=== PATIENT | male | born 1965 | race Caucasian/White ===

== ENCOUNTER 2016-07-13 23:45 | Emergency (ER) | payer SELFPAY ==
[~2016-07-13] VITALS: Ht 172.7 cm; Wt 81.0 kg
[~2016-07-13 23:45] MED LIST: AMIO200T2 PO; ASPI-664 PO; METO-429 PO; PANT40TA3 PO
[2016-07-13] MEDS ORDERED: KETOROLAC 15 MG INJ IV STA (23:52)
[2016-07-13] MEDS ORDERED: SOD CHLORIDE 0.9% 1,000 ML IV STA (23:52)
[2016-07-13 23:55] VITALS: Ht 172.7 cm; Wt 81.0 kg
[2016-07-14] MEDS ORDERED: LORAZEPAM 2 MG INJ IV ONE (00:30)
--- NOTE | 2016-07-14 00:36 | RADRPT ---
PROCEDURE: CHEST - 1 VIEW CLINICAL INDICATION: 51-year-old male with chest/abdominal pain. TECHNIQUE: A single frontal AP semi-erect view of the chest was performed. The images were review ed on a PACS workstation. COMPARISON: Chest x-ray June 19, 2014; CTA chest June 19, 2014. FINDINGS: The cardiomediastinal silhouette is within normal limits. There is mild elevation right hemidiaphra gm. There is linear subsegmental atelectasis and/or scarring within the right mid lung zone. There is mild right basilar subsegmental atelectasis. There is no evidence for an infiltrate. There is no evidence for congestive heart failure. There is no evidence for pneumothorax. The osseous structu res are intact. IMPRESSION: 1. Elevated right hemidiaphragm. 2. Linear subsegmental atelectasis and/or scarring within the right mid lung zone similar to the arleen horvath's prior study. 3. Mild right basilar subsegmental atelectasis. .Van Branham MD, Date Time Electronically viewed and signed by .Van Branham MD, on 07/14/2016 00:36 .M/
[2016-07-14 01:09] LABS: ADD SCAN DIFF NO
[2016-07-14 01:10] LABS: BASOPHILS % 0.5 % (0.0-2.0); EOSINOPHILS # 0.2 10^3/ul (0.0-0.5); HEMATOCRIT 43.6 % (42.0-52.0); LYMPHOCYTES # 2.1 10^3/ul (0.8-2.9); LYMPHOCYTES % 27.2 % (15.0-51.0); MEAN CORPUSCULAR HGB CONC 32.1 g/dl (32.0-37.0); MEAN CORPUSCULAR VOLUME 90.3 fl (82.0-101.0); MEAN PLATELET VOLUME 10.6 fl (7.4-10.4); MONOCYTE # 0.8 10^3/ul (0.3-0.9); MONOCYTES % 10.8 % (0.0-11.0); NEUTROPHIL # 4.5 10^3/ul (1.6-7.5); NEUTROPHILS % 59.1 % (39.0-77.0); PLATELET COUNT 254 10^3/UL (140-415); RED BLOOD COUNT 4.83 10^6/ul (4.70-6.10); RED CELL DISTRIBUTION WIDTH 12.9 % (11.5-14.5); WHITE BLOOD COUNT 7.6 10^3/ul (4.8-10.8)
[2016-07-14] MEDS ORDERED: IBUP-1542 PO (01:18)
--- NOTE | 2016-07-14 01:18 | ERD ---
ER Documentation Chief Complaint Date/Time DATE: 07/14/16 TIME: 01:14 Chief Complaint mid pressure-like CP x 45 min, non radiating, ntg x 5, asa 243mg HPI 51-year-old man brought in by EMS for complaints of chest pain. He was given nitroglycerin and aspirin en route as well as morphine with continued symptoms. Patient states the pain is localized to the left anterior upper axilla and is nonradiating and nonexertional. Patient does have a history of coronary artery disease, PCI with stents placed, and previous KS. Patient states he has recently been upset because his 16-year-old sons health is deteriorating secondary to white matter disease which is where an untreatable. He denies shortness of breath, no cough, no fevers or chills, no weight loss, no vomiting or diarrhea. Patient was transported here by EMS without further complications. ROS All systems reviewed and are negative except as per history of present illness. Medications Home Meds Active Scripts Ibuprofen* (Ibuprofen*) 600 Mg Tablet, 600 MG PO Q8 for PAIN AND/OR INFLAMMATION , #30 TAB Prov:JANE KLINE MD 07/14/16 Reported Medications Aspirin* (Aspirin* (EC)) 81 Mg Tablet.dr, 81 MG PO DAILY, TAB 06/19/14 Metoprolol Tartrate* (Lopressor*) 50 Mg Tab, 50 MG PO BID, TAB 06/19/14 Discontinued Reported Medications Pantoprazole* (Protonix*) 40 Mg Tablet.dr, 40 MG PO DAILY, TAB 06/19/14 Amiodarone Hcl* (Amiodarone Hcl*) 200 Mg Tablet, 200 MG PO DAILY, TAB 06/19/14 Allergies Allergies: Coded Allergies: No Known Allergy (Unverified , 07/13/16) PMhx/Soc History of coronary artery disease, myocardial infarction, status post PCI with stents x2. He had restenosis of the initial stent, placed 12 years ago, had to be restented a few years after that. Hypertension and gastritis. Hx Cardiac Disorders: Yes (stents and KS, HTN) Hx Alcohol Use: Yes (occasionally) Hx Substance Use: No Hx Tobacco Use: Yes (cigar occasionally) Smoking Status: Light tobacco smoker FmHx Family History: diabetes Physical Exam Vitals Vital Signs Date Time Temp Pulse Resp B/P Pulse Ox O2 Delivery O2 Flow Rate FiO2 07/14/16 00:02 59 12 107/84 98 Nasal Cannula 3.0 07/13/16 23:55 98.4 81 18 115/79 97 Physical Exam GENERAL: Well-developed, well-nourished, well-hydrated, in no apparent distress , looks nontoxic in appearance HEENT: Moist mucous membranes, pink conjunctiva, no cervical spine tenderness or step-off deformities, no goiter, no jaundice or icterus, extraocular movements intact without pain. No submandibular induration, and no pharyngeal erythema NEURO: Alert and oriented 3, cranial nerves II through XII intact bilaterally, pupils equal round reactive to light, no focal deficits or facial asymmetry, sensation intact distally Strength 5/5 in upper and lower extremities bilaterally CARDIAC: Regular rate and rhythm, no murmurs rubs or gallops LUNGS: Clear bilaterally no wheezing crackles or stridor ABDOMEN: Soft nontender, no guarding, no rigidity, no rebound, no psoas sign no obturator sign. Normoactive bowel sounds SKIN: Warm and dry to touch, no abrasions, contusions, or hematomas, no lacerations, no ecchymosis, no target lesions, and without ulcers EXTREMITIES: No clubbing cyanosis or edema, calves are bilaterally symmetrical, no Homans sign, no popliteal cord sign. Distal pulses equal and bilateral PSYCH: Normal affect without agitation or irritability Result Diagram: 07/14/16 0020 07/14/16 0020 Results 24 hrs Laboratory Tests Test 07/14/16 00:20 White Blood Count 7.610^3/ul Red Blood Count 4.8310^6/ul Hemoglobin 14.0g/dl Hematocrit 43.6% Mean Corpuscular Volume 90.3fl Mean Corpuscular Hemoglobin 29.0pg Mean Corpuscular Hemoglobin Concent 32.1g/dl Red Cell Distribution Width 12.9% Platelet Count 52734^3/UL Mean Platelet Volume 10.6fl Neutrophils % 59.1% Lymphocytes % 27.2% Monocytes % 10.8% Eosinophils % 2.0% Basophils % 0.5% Nucleated Red Blood Cells % 0.0/100WBC Neutrophils # 4.510^3/ul Lymphocytes # 2.110^3/ul Monocytes # 0.810^3/ul Eosinophils # 0.210^3/ul Basophils # 0.010^3/ul Nucleated Red Blood Cells # 0.010^3/ul Sodium Level 139mmol/L Potassium Level 3.7mmol/L Chloride Level 109mmol/L Carbon Dioxide Level 25mmol/L Anion Gap 9 Blood Urea Nitrogen 17mg/dl Creatinine 1.04mg/dl Glucose Level 97mg/dl Calcium Level 8.5mg/dl Total Bilirubin 0.2mg/dl Direct Bilirubin 0.00mg/dl Indirect Bilirubin 0.2mg/dl Aspartate Amino Transf (AST/SGOT) 24IU/L Alanine Aminotransferase (ALT/SGPT) 32IU/L Alkaline Phosphatase 90IU/L Troponin I < 0.012ng/ml Total Protein 6.5g/dl Albumin 3.5g/dl Globulin 3.00g/dl Albumin/Globulin Ratio 1.16 Lipase 131U/L Current Medications Medications (Trade) Dose Ordered Sig/Bravo Route PRN Reason Start Time Stop Time Status Last Admin Dose Admin Sodium Chloride (NS) 1,000 ml @ 1,000 mls/hr Q1H STAT IV 07/13/16 23:52 07/14/16 00:51 DC 07/13/16 23:59 Ketorolac Tromethamine (Toradol) 15 mg ONCE STAT IV 07/13/16 23:52 07/13/16 23:54 DC 07/13/16 23:59 Lorazepam (Ativan) 0.5 mg ONCE ONCE IV 07/14/16 00:30 07/14/16 00:39 DC 07/14/16 00:41 Procedures/MDM IV line was established patient was placed on school lunch monitor rhythm strip revealed a sinus rhythm at about 80 bpm with upright P and T waves. Patient was afebrile. One view chest x-ray performed, read by me revealed atelectatic changes, no acute infiltrates, no pneumothorax, no air under the diaphragm. EKG #1 was performed, read by me revealed a normal sinus rhythm at 77 bpm, normal axis, narrow QRS complex, no concerning ST elevations or depressions noted. I administered 1 L normal saline intravenously, lorazepam 0.5 mg IV 1, Toradol 50 mg IV 1 with good response. EKG #2 performed about an hour later revealed a sinus bradycardia 57 bpm, normal axis, narrow QRS complex, no concerning ST elevations or depressions. CBC and electrolytes were normal, liver function tests were normal, troponin was negative. I reviewed his previous medical records and imaging studies. 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 Differential diagnoses considered, included but not limited to acute coronary syndrome, pulmonary embolism, aortic dissection, abdominal aortic aneurysm, sepsis, stroke, meningitis, encephalitis, pneumonia, appendicitis, cholecystitis , bowel obstruction, pyelonephritis, nephrolithiasis, cystitis, as well as metabolic, hematologic, and electrolyte abnormalities. As well as abscess, cellulitis, fractures, and dislocations. Patient feels much better at this time, and vital signs are normal, symptoms have improved. I did give strict instructions to return to the ED if symptoms continue or worsen, patient will otherwise follow-up with primary care physician. Patient understood instructions and agreed to plan. Departure Diagnosis: Primary Impression: Chest pain Chest pain type: unspecified Qualified Code: R07.9 - Chest pain, unspecified type Condition: Good JANE KLINE MD Jul 14, 2016 01:18
[2016-07-14 01:22] LABS: ALBUMIN 3.5 g/dl (3.3-4.9); CHLORIDE 109 mmol/L (97-110)
[2016-07-14 01:23] LABS: POTASSIUM 3.7 mmol/L (3.5-5.1); SODIUM 139 mmol/L (135-144)
[2016-07-14 01:25] LABS: ALANINE AMINOTRANSFERASE 32 IU/L (13-69); ALBUMIN/GLOBULIN RATIO 1.16; ALKALINE PHOSPHATASE 90 IU/L (42-121); ANION GAP 9 (8-16); ASPARTATE AMINO TRANSFERASE 24 IU/L (15-46); BILIRUBIN,INDIRECT 0.2 mg/dl (0-1.1); BILIRUBIN,TOTAL 0.2 mg/dl (0.2-1.3); BLOOD UREA NITROGEN 17 mg/dl (7-20); CARBON DIOXIDE 25 mmol/L (21-31); CREATININE 1.04 mg/dl (0.61-1.24); GLUCOSE 97 mg/dl (70-220); TOTAL PROTEIN 6.5 g/dl (6.1-8.1)
[2016-07-14 01:26] LABS: CALCIUM 8.5 mg/dl (8.4-10.2)
[2016-07-14 02:05] LABS: TROPONIN-I < 0.012 ng/ml (0.00-0.12)
[2016-07-14 02:10] VITALS: BP 118/78; PULSE 73; RESP 18
== END 2016-07-14 02:10 | disposition home or self-care (01) ==
LOC: E/R 23:45
DX: R07.89 Other chest pain (principal); F17.210 Nicotine dependence, cigarettes, uncomplicated; I25.10 Atherosclerotic heart disease of native coronary artery without angina pectoris; I10 Essential (primary) hypertension; Z98.61 Coronary angioplasty status; Z79.82 Long term (current) use of aspirin
CPT/HCPCS: 71010; 80053; 83690; 84484; 85025; 93005; J1885; J2060; J7030; 36415; 96374; 96375

== ENCOUNTER 2018-09-04 21:03 | Observation (INO) | payer MEDICAID, OTHER ==
[~2018-09-04] VITALS: Ht 180.3 cm; Wt 88.6 kg
[~2018-09-04 21:03] MED LIST changes: -AMIO200T2 PO; +ASPI-1046 PO; -ASPI-664 PO; +IBUP-1542 PO; -PANT40TA3 PO
[2018-09-04 21:07] VITALS: Ht 180.3 cm; Wt 88.6 kg
[2018-09-04] MEDS ORDERED: NITROGLYCERIN 2% 1 GM OINT PKT TD STA (21:09)
[2018-09-04] MEDS ORDERED: ONDANSETRON 4 MG INJ IV STA (21:15)
[2018-09-04] MEDS ORDERED: morphine 4 MG/ML VIAL IV STA (21:15)
[2018-09-04] MEDS ORDERED: NITROGLYCERIN (SL) 0.4 MG TAB SL PRN (21:30)
[2018-09-04] MEDS ORDERED: HYDROmorphONE 2 MG/ML SYG IV STA (21:45)
[2018-09-04] MEDS ORDERED: METOPROLOL 50 MG TAB PO SCH (23:00)
[2018-09-04] MEDS ORDERED: ZOLPIDEM 5 MG TAB PO PRN (23:00)
[2018-09-04] MEDS ORDERED: ACETAMINOPHEN 325 MG TAB PO PRN (23:00)
[2018-09-04] MEDS ORDERED: ONDANSETRON 4 MG INJ IV PRN (23:00)
--- NOTE | 2018-09-04 23:26 | ERD ---
ER Documentation Chief Complaint Chief Complaint [id number],from home,chest pressure pain radiating to L arm,hx [place] X2 w/ stents HPI Patient is a 53-year-old male with hypertension and coronary disease who presents with chest pain. He was brought in by ambulance. His symptoms started a couple of hours ago. He feels pain across his chest which comes and goes. He took nitroglycerin at home. He was given aspirin and 2 nitroglycerin by paramedics. He is still having pain however. He said that his primary doctor is Dr. Fontanez. 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 ROS All systems reviewed and are negative except as per history of present illness. Medications Home Meds Active Scripts Ibuprofen* (Ibuprofen*) 600 Mg Tablet, 600 MG PO Q8 for PAIN AND/OR INFLAMMATION, #30 TAB Prov:JANE KLINE MD 07/14/16 Reported Medications Aspirin* (Aspirin* (EC)) 81 Mg Tablet.dr, 81 MG PO DAILY, TAB 06/19/14 Metoprolol Tartrate* (Lopressor*) 50 Mg Tab, 50 MG PO BID, TAB 06/19/14 Allergies Allergies: Coded Allergies: No Known Allergy (Unverified , 07/13/16) PMhx/Soc Hx Cardiac Disorders: Yes (stents X3 and [place], HTN) Hx Psychiatric Problems: No Hx Miscellaneous Medical Probl: No Hx Alcohol Use: Yes (occasionally) Hx Substance Use: No Hx Tobacco Use: Yes (cigar occasionally) Smoking Status: Current some day smoker FmHx Family History: coronary disease Physical Exam Vitals Vital Signs Date Temp Pulse Resp B/P (MAP) Pulse Ox O2 O2 Flow FiO2 Time Delivery Rate 09/04/18 71 20 116/77 95 Room Air 23:10 (90) 09/04/18 72 18 108/77 97 Room Air 21:46 (87) 09/04/18 98.0 67 19 129/89 98 21:07 (102) Physical Exam Constitutional: Moderate distress Head: Atraumatic Eyes: Normal Conjunctiva ENT: Normal External Ears, Nose and Mouth. Neck: Full range of motion. No meningismus. Resp: Clear to auscultation bilaterally Cardio: Regular rate and rhythm, no murmurs Abd: Soft, non tender, non distended. Normal bowel sounds Skin: No petechiae or rashes Back: No midline or flank tenderness Ext: No cyanosis, or edema Neur: Awake and alert Psych: Normal Mood and Affect Result Diagram: 09/04/18211309/04/182113 Results 24 hrs Laboratory Tests Test 09/04/18 21:14 White Blood Count 6.9 10^3/ul Red Blood Count 4.64 10^6/ul Hemoglobin 13.7 g/dl Hematocrit 41.6 % Mean Corpuscular Volume 89.7 fl Mean Corpuscular Hemoglobin 29.5 pg Mean Corpuscular Hemoglobin Concent 32.9 g/dl Red Cell Distribution Width 12.5 % Platelet Count 262 10^3/UL Mean Platelet Volume 9.9 fl Immature Granulocytes % 0.100 % Neutrophils % 63.8 % Lymphocytes % 24.4 % Monocytes % 9.6 % Eosinophils % 1.5 % Basophils % 0.6 % Nucleated Red Blood Cells % 0.0 /100WBC Immature Granulocytes # 0.010 10^3/ul Neutrophils # 4.4 10^3/ul Lymphocytes # 1.7 10^3/ul Monocytes # 0.7 10^3/ul Eosinophils # 0.1 10^3/ul Basophils # 0.0 10^3/ul Nucleated Red Blood Cells # 0.0 10^3/ul Sodium Level 143 mmol/L Potassium Level 3.5 mmol/L Chloride Level 108 mmol/L Carbon Dioxide Level 26 mmol/L Anion Gap 9 Blood Urea Nitrogen 11 mg/dl Creatinine 0.89 mg/dl Est Glomerular Filtrat Rate mL/min > 60 mL/min Glucose Level 99 mg/dl Calcium Level 8.9 mg/dl Troponin I < 0.012 ng/ml Current Medications Medications Dose Sig/Bravo Start Time Status Last (Trade) Ordered Route PRN Stop Time Admin Dose Reason Admin 1 inch ONCE STAT 09/04/18 DC 09/04/18 Nitroglycerin TD 21:09 21:15 09/04/18 21:10 (Nitroglyceri n 2% Oint) 1 tab Q5M UP TO 3 09/04/18 09/04/18 Nitroglycerin DOSES PRN 21:30 21:14 SL .CHEST (Nitroglyceri PAIN n (Sl Tab) 0.4 Mg) Morphine 4 mg ONCE STAT 09/04/18 DC 09/04/18 Sulfate IV 21:15 21:23 (morphine) 09/04/18 21:16 Ondansetron 4 mg ONCE STAT 09/04/18 DC 09/04/18 HCl (Zofran IV 21:15 21:20 Inj) 09/04/18 21:16 1 mg ONCE STAT 09/04/18 DC 09/04/18 Hydromorphone IV 21:45 22:01 HCl 09/04/18 21:46 (Dilaudid) Ondansetron 4 mg ER BRIDGE 09/04/18 HCl (Zofran PRN IV 23:00 Inj) NAUSEA/VOMITI 09/05/18 22:59 NG 650 mg ER BRIDGE 09/04/18 Acetaminophen PRN PO 23:00 (Tylenol .MILD PAIN 09/05/18 22:59 Tab) 1-3 OR TEMP Zolpidem 5 mg HS 09/04/18 Tartrate REPEAT X 1 23:00 (Ambien) PRN PO INSOMNIA Morphine 2 mg Q3H PRN 09/04/18 Sulfate IV moderate 23:00 (morphine) pain Aspirin 81 mg DAILY PO 09/05/18 (Halfprin) 09:00 Metoprolol 50 mg BID PO 09/04/18 Tartrate 23:00 (Lopressor) Procedures/MDM EKG #1 read by me: Rate/Rhythm: Regular rate and rhythm at a normal rate Intervals: Normal Impression: No evidence of ischemia or arrhythmia EKG #2 read by me: Rate/Rhythm: Regular rate and rhythm at a normal rate Intervals: Normal Impression: No evidence of ischemia or arrhythmia Chest x-ray read by radiology. Patient is a 53-year-old male with multiple cardiac risk factors who presents with chest pain. I am concerned for possible acute coronary syndrome. I doubt pneumonia, pneumothorax, pulmonary embolism, or aortic dissection. The patient will be admitted to the care of Dr. Lindsey as he has regal insurance to a telemetry observation bed. He received aspirin, nitroglycerin, and morphine. Departure Diagnosis: Primary Impression: Chest pain Chest pain type: unspecified Qualified Codes: R07.9 - Chest pain, unspecified Condition: GÓMEZ Rivera MD September 04, 2018 23:26
[2018-09-05] MEDS: morphine 2 MG INJ IV PRN ×4 (02:39→08:42)
[2018-09-05] MEDS ORDERED: ASPIRIN (EC) 81 MG TAB PO SCH (09:00)
[2018-09-05] MEDS ORDERED: METOPROLOL 25 MG TAB PO SCH (10:00)
--- NOTE | 2018-09-05 10:57 | PDOCDIS ---
Discharge Instructions CONDITION [id number] Patient Condition: [id number] Good HOME CARE INSTRUCTIONS: [id number] Diet Instructions: [id number] FOLLOW UP/APPOINTMENTS Follow-up Plan pcp 1 week CROW PANDYA MD September 05, 2018 10:57
[2018-09-05] MEDS ORDERED: CLOP75TA27 PO (11:08)
[2018-09-05 11:10] VITALS: BP 134/65; PULSE 66; RESP 17
--- NOTE | 2018-09-05 13:20 | HP ---
DATE OF ADMISSION: 09/04/2018 CHIEF COMPLAINT: Chest pain. HISTORY OF PRESENT ILLNESS: A 53-year-old male with history of coronary artery disease and hypertens ion, was brought into the emergency room via paramedics with complaints of chest pain across the uppe r chest. The patient was given aspirin and nitroglycerin by the paramedics. The patient reports juan carlos t he recently learned about his 19-year-old son. His son has a limited life span as secondary to a ge netic metabolic disorder. His son also had multiple episodes of generalized seizure. The patient wa s quite anxious and under a lot of stress when he developed the chest discomfort. He denies shortnes s of breath. No nausea, vomiting or diaphoresis. Serial troponins have been normal. PAST MEDICAL HISTORY: 1. Coronary artery disease. 2. Hypertension. MEDICATIONS PRIOR TO ADMISSION: 1. Plavix 75 mg p.o. daily. 2. Lopressor 25 mg p.o. b.i.d. 3. Aspirin 81 mg daily. SOCIAL HISTORY: The patient lives at home. He denies tobacco or alcohol use. PHYSICAL EXAMINATION: GENERAL: Well-developed, well-nourished male who is in no apparent distress. VITAL SIGNS: Stable. He is afebrile. HEENT: Extraocular muscles intact. Pupils equal and reactive to light bilaterally. Sclerae are ani cteric. Oropharynx is clear and moist. NECK: Supple, no JVD, no carotid bruits. CHEST: Upper chest is tender to palpation. LUNGS: Clear to auscultation bilaterally. CARDIAC: Regular rate and rhythm. No murmurs or gallops. ABDOMEN: Soft, nontender, nondistended, normoactive bowel sounds. EXTREMITIES: No clubbing, cyanosis, or edema. NEUROLOGIC: Grossly nonfocal. LABORATORY DATA: Basic metabolic panel is within normal limits. CBC is also normal. A 12-lead EKG shows normal sinus rhythm with no evidence of ST-T wave changes x2. ASSESSMENT: 1. A 53-year-old male who presents with acute chest pain brought on by anxiety. Acute myocardial in farction was ruled out. I recommended the Lexiscan stress test. However, the patient refused the te st since he had a normal nuclear stress test in May of 2018. 2. Hypertension, well controlled. PLAN: 1. Place in tele observation, resume home medications. 2. Discharge planning. Dictated By: CROW DEMPSEY/SHU Conf#: [id number] DID#: [id number]
--- NOTE | 2018-09-06 02:51 | DS ---
DATE OF ADMISSION: 09/04/2018 DATE OF DISCHARGE: 09/05/2018 DISCHARGE DIAGNOSES: 1. Atypical chest pain. 2. Coronary artery disease, stable. 3. Hypertension. 4. Anxiety disorder. HOSPITAL COURSE: A 53-year-old male with known history of coronary artery disease and hypertension, was brought in by paramedics after he experienced upper chest discomfort at home. This was brought o n by anxiety and severe stress. The patient has a 19-year-old son who was diagnosed with genetic met abolic disorder and a limited life span. The son has been having generalized seizures. The patient was severely affected by his son's condition. Following admission to the hospital, acute [place] was ruled out. EKGs were completely normal. I recomme nded a Lexiscan stress test. However, patient refused the stress test since he had a nuclear stress test in May 2018, which was normal. The patient is in a stable condition for discharge. I aske d him to continue his home medications and follow up with his PCP. Dictated By: CROW DEMPSEY/SHU Conf#: [id number] DID#: [id number]
== END 2018-09-05 10:55 | disposition home or self-care (01) ==
LOC: E/R 21:03 → TEL 22:48 → E/R 09-05 11:29 → CANBEDREQ 09-05 13:28
PROVIDERS: ADMIT Internal Medicine; ATTEND Internal Medicine
DX: R07.89 Other chest pain (principal); I25.10 Atherosclerotic heart disease of native coronary artery without angina pectoris; Z95.5 Presence of coronary angioplasty implant and graft; I10 Essential (primary) hypertension; F41.9 Anxiety disorder, unspecified; I25.2 Old myocardial infarction; F17.290 Nicotine dependence, other tobacco product, uncomplicated; Z79.82 Long term (current) use of aspirin; Z79.02 Long term (current) use of antithrombotics/antiplatelets
CPT/HCPCS: 36415; 71045; 80048; 82550; 82553; 84484; 85025; 93005; 96374; 96375; J1170; J2270; J2405; Z7500; Z7502; Z7610; G0378

== ENCOUNTER 2019-02-06 05:54 | Inpatient (IN) | payer OTHER ==
[~2019-02-06] VITALS: Ht 180.3 cm; Wt 88.1 kg
[~2019-02-06 05:54] MED LIST changes: +ALPR0.254 PO; +ATOR20TA65 PO; +CLOP75TA27 PO; +CLOP75TA28 PO; -IBUP-1542 PO; +LISI2.5T59 PO; +PANT40TA4 PO
[2019-02-06] MEDS ORDERED: morphine 4 MG/ML VIAL IV STA ×2 (06:55→07:24)
[2019-02-06] MEDS ORDERED: NITROGLYCERIN (SL) 0.4 MG TAB SL ONE (07:00)
[2019-02-06] MEDS ORDERED: ASPIRIN 81 MG TAB PO ONE (07:00)
[2019-02-06] MEDS ORDERED: IOHEXOL 100 ML ONE (07:59)
[2019-02-06] MEDS ORDERED: SOD CHLORIDE 0.9% 100 ML ONE (07:59)
[2019-02-06] MEDS ORDERED: LORAZEPAM 1 MG TAB PO ONE (10:30)
[2019-02-06] MEDS ORDERED: ONDANSETRON 4 MG INJ IV PRN ×2 (13:30→14:00)
[2019-02-06] MEDS ORDERED: ACETAMINOPHEN 325 MG TAB PO PRN ×2 (13:30→14:00)
[2019-02-06] MEDS ORDERED: LIDOCAINE/MYLANTA 40 ML BTL PO ONE (14:00)
[2019-02-06 19:54] VITALS: Ht 180.3 cm; Wt 88.1 kg
[2019-02-06 20:00] VITALS: BP 131/76; PULSE 77; RESP 19
[2019-02-06] MEDS: ALPRAZOLAM 0.25 MG TAB PO SCH (20:52)
[2019-02-06] MEDS: PANTOPRAZOLE (EC) 40 MG TAB PO SCH (20:52)
[2019-02-06] MEDS: METOPROLOL 50 MG TAB PO SCH (20:52)
[2019-02-06] MEDS ORDERED: ATORVASTATIN 20 MG TAB PO SCH (21:00)
[2019-02-06] MEDS: morphine 2 MG INJ IV PRN (22:19)
[2019-02-07] VITALS: BP 122/77; PULSE 60; RESP 18
[2019-02-07 04:00] VITALS: BP 119/84; PULSE 75; RESP 18
[2019-02-07] MEDS: morphine 2 MG INJ IV PRN ×3 (05:51→15:22)
[2019-02-07 07:45] VITALS: BP 121/78; PULSE 73; RESP 18
[2019-02-07] MEDS: PANTOPRAZOLE (EC) 40 MG TAB PO SCH (08:18)
[2019-02-07] MEDS: METOPROLOL 50 MG TAB PO SCH (08:19)
[2019-02-07] MEDS: ALPRAZOLAM 0.25 MG TAB PO SCH (08:19)
[2019-02-07] MEDS ORDERED: CLOPIDOGREL 75 MG TAB PO SCH (09:00)
[2019-02-07] MEDS ORDERED: ASPIRIN (EC) 81 MG TAB PO SCH (09:00)
[2019-02-07 12:04] VITALS: BP 145/86; PULSE 57; RESP 18
[2019-02-07 15:48] VITALS: BP 137/68; PULSE 62; RESP 18
[2019-02-08] MEDS ORDERED: LISINOPRIL 5 MG TAB PO SCH (09:00)
== END 2019-02-07 16:20 | disposition left against medical advice (07) | DRG 392 ==
LOC: E/R 05:54 → TEL 19:54
PROVIDERS: ADMIT Legal Medicine; ATTEND Legal Medicine
DX: K31.84 Gastroparesis (principal); R07.89 Other chest pain; Z95.5 Presence of coronary angioplasty implant and graft; Z79.82 Long term (current) use of aspirin; Z72.0 Tobacco use
CPT/HCPCS: 36415; 71045; 71275; 76705; 80048; 82550; 82553; 84484; 85025; 93005; 96374; 96376; J2270; Q9967